=== PATIENT | female | born 1975 | race American Indian/Alaskan Native ===

== ENCOUNTER 2017-11-01 11:37 | Emergency (ER) | payer MEDICAID, OTHER ==
[2017-11-01 11:50] VITALS: BP 120/90
--- NOTE | 2017-11-01 12:11 | EDM.PDOC ---
ED HPI GENERAL MEDICAL PROBLEM - General Chief Complaint: Back Pain or Injury Stated Complaint: [id number] BACK PAIN Time Seen by Provider: 11/01/17 11:50 Source of Information: Reports: Patient, Old Records, RN, RN Notes Reviewed History Limitations: Reports: No Limitations - History of Present Illness INITIAL COMMENTS - FREE TEXT/NARRATIVE: Adela is a 42 yo F that presents to the ED today due to complaints of back pain. She relates that she does suffer from chronic back pain and was seeing a pain management in [place] but was unable to keep her appointments there due to the distance. She was previously taking gabapentin and tramadol for her pain, but has since ran out. Reports that her back pain seemed to get worse over the last couple days making it uncomfortable for her to lie down in bed at night so she has needed to sleep up right in a chair to be able to sleep. She denies any bowel or bladder retention or incontinence. Denies any new injuries to the area. Reports that the pain starts in her mid back and shoots down into her right leg. She does report numbness into her right leg but says that that is nothing new for her. She has been taking tylenol and ibuprofen over the counter with minimal relief. Denies hematuria or urinary frequency. Onset: Gradual Duration: Chronic Location: Reports: Back Quality: Reports: Stabbing, Other ("muscle spasm like pain" ) Improves with: Reports: Rest Worsens with: Reports: Movement Associated Symptoms: Reports: No Other Symptoms Lower Back Pain Score (Numeric/FACES): 5 - Related Data Allergies Allergy/AdvReac Type Severity Reaction Status Date / Time Penicillins Allergy Rash Verified 11/01/17 11:41 Home Meds: Home Meds Cetirizine HCl [All Day Allergy] 10 mg PO DAILY 11/01/17 [History] Past Medical History HEENT History: Reports: Impaired Vision Cardiovascular History: Reports: Hypertension Musculoskeletal History: Reports: Back Pain, Chronic Endocrine/Metabolic History: Reports: Diabetes, Gestational, Obesity/BMI 30+ - Past Surgical History Cardiovascular Surgical History: Reports: None Musculoskeletal Surgical History: Reports: Other (See Below) Other Musculoskeletal Surgeries/Procedures:: left ankle broken Social & Family History - Family History Family Medical History: Noncontributory - Tobacco Use Smoking Status *Q: Current Every Day Smoker Years of Tobacco use: 20 Packs/Tins Daily: 1 - Caffeine Use Caffeine Use: Reports: Coffee - Recreational Drug Use Recreational Drug Use: No ED ROS GENERAL - Review of Systems Review Of Systems: ROS reveals no pertinent complaints other than HPI. ED EXAM,LOWER BACK PAIN/INJURY - Physical Exam Exam: See Below Exam Limited By: No Limitations General Appearance: Alert, WD/WN, No Apparent Distress Eye Exam: Bilateral Eye: EOMI, Vision Changes Ears: Normal External Exam, Normal Canal, Hearing Grossly Normal, Normal TMs Nose: Normal Inspection, Normal Mucosa, No Blood Throat/Mouth: Normal Inspection, Normal Lips, Normal Teeth, Normal Gums, Normal Oropharynx, Normal Voice, No Airway Compromise Head: Atraumatic, Normocephalic Neck: Normal Inspection, Supple, Non-Tender, Full Range of Motion Respiratory/Chest: No Respiratory Distress, Lungs Clear, Normal Breath Sounds, No Accessory Muscle Use, Chest Non-Tender Cardiovascular: Normal Peripheral Pulses, Regular Rate, Rhythm, No Edema, No Gallop, No JVD, No Murmur, No Rub GI/Abdominal: Normal Bowel Sounds, Soft, Non-Tender, No Organomegaly, No Distention, No Abnormal Bruit, No Mass (Female) Exam: Deferred Rectal (Female) Exam: Deferred Back Exam: Paraspinal Tenderness (Patient reports pain to paraspinal muscles starting at L5 down. No wounds/open sores noted. ) Extremities: Normal Inspection, Normal Range of Motion, Non-Tender, No Pedal Edema, Normal Capillary Refill Neurological: Alert, Normal Mood/Affect, Normal Dorsiflexion, CN II-XII Intact, Normal Plantar Flexion, Normal Gait, Normal Reflexes, No Motor/Sensory Deficits , Oriented x 3 Psychiatric: Normal Affect, Normal Mood Skin Exam: Warm, Dry, Intact, Normal Color, No Rash Lymphatic: No Adenopathy Course - Vital Signs Last Recorded V/S: Last Vital Signs Temp 36.4 C 11/01/17 11:44 Pulse 87 11/01/17 11:44 Resp 16 11/01/17 11:44 BP 120/90 11/01/17 11:44 Pulse Ox 100 11/01/17 11:44 - Orders/Labs/Meds Meds: Medications Discontinued Medications Generic Name Dose Route Start Last Admin Trade Name Freq PRN Reason Stop Dose Admin Cyclobenzaprine HCl 10 mg 11/01/17 12:13 03/21/18 12:21 Flexeril PO 11/01/17 12:14 Not Given ONETIME ONE Ketorolac Tromethamine 60 mg 11/01/17 12:13 11/01/17 12:19 Toradol IM 11/01/17 12:14 60 mg ONETIME ONE Administration - Re-Assessments/Exams Free Text/Narrative Re-Assessment/Exam: 11/01/17 12:44 Patient was given injection of toradol while in the ER. She was offered PO flexeril but declined as she didn't want anything that would make her feel sleepy. Departure - Departure Time of Disposition: 12:46 Disposition: Home, Self-Care 01 Condition: Good Clinical Impression: Back pain Qualifiers: Back pain location: low back pain Chronicity: chronic Back pain laterality: bilateral Sciatica presence: with sciatica Sciatica laterality: sciatica of right side Qualified Code(s): M54.41 - Lumbago with sciatica, right side - Discharge Information Instructions: Back Pain, Adult, [id number], Chronic Back Pain Forms: ED Department Discharge Care Plan Goals: Adela was given a prescription for toradol with instructions not to take ibuprofen along with the toradol. Encouraged her to keep her appointment with her primary care provider regarding her back pain as scheduled. Red flag symptoms discussed including bowel or bladder issues, numbness or weakness. Patient verbalizes understanding. Denies any further questions or concerns at this time.
[2017-11-01] MEDS: Ketorolac 30 MG/ML SDV IM ONE (12:19)
[2017-11-01] MEDS: Cyclobenzaprine 10 MG Tab PO ONE (12:21)
== END 2017-11-01 12:51 | disposition home or self-care (01) ==
LOC: DL.ED 11:37
DX: M54.41 Lumbago with sciatica, right side (principal); I10 Essential (primary) hypertension; F17.210 Nicotine dependence, cigarettes, uncomplicated; Z88.0 Allergy status to penicillin
CPT/HCPCS: 96372; 99283; J1885

== ENCOUNTER 2018-12-03 19:21 | Emergency (ER) | payer MEDICAID ==
[2018-12-03] MEDS ORDERED: Potassium Chloride 10 MEQ Tab.ER PO ONE (19:22)
[2018-12-03] MEDS ORDERED: Furosemide 40 MG Tab PO ONE (19:22)
--- NOTE | 2018-12-03 19:47 | EDM.PDOC ---
ED HPI GENERAL MEDICAL PROBLEM - General Chief Complaint: Lower Extremity Injury/Pain Stated Complaint: LEGS, SWOLLEN Time Seen by Provider: 12/03/18 19:30 Source of Information: Reports: Patient, RN Notes Reviewed History Limitations: Reports: No Limitations - History of Present Illness INITIAL COMMENTS - FREE TEXT/NARRATIVE: ED with c/o lower leg swelling. Present x one month, worse 3 weeks ago. Increased over past 2 days. No calf pain, no SOB, No hx of blood clots. no injury, no recent travel. Admits at least 3-4 energy drinks per day. Complete physical 3 weeks ago, Started on Vitamin d, some improvemnt after and also given 5 day Rx for Lasix. Usual weight 289, weighs at least weekly and no change. Bilateral Lower Leg Pain Score (Numeric/FACES): 4 - Related Data Allergies Allergy/AdvReac Type Severity Reaction Status Date / Time Penicillins Allergy Rash Verified 12/03/18 19:30 Home Meds: Home Meds Cetirizine HCl [All Day Allergy] 10 mg PO DAILY 11/01/17 [History] Buprenorphine HCl/Naloxone HCl [Suboxone 12 mg-3 mg Sl Film] 8.6 mg PO DAILY [History] Past Medical History HEENT History: Reports: Impaired Vision Cardiovascular History: Reports: Hypertension Musculoskeletal History: Reports: Back Pain, Chronic, Fracture Psychiatric History: Reports: Addiction Endocrine/Metabolic History: Reports: Diabetes, Gestational, Obesity/BMI 30+ - Past Surgical History Cardiovascular Surgical History: Reports: None Musculoskeletal Surgical History: Reports: Other (See Below) Other Musculoskeletal Surgeries/Procedures:: left ankle broken Social & Family History - Family History Family Medical History: Noncontributory - Tobacco Use Smoking Status *Q: Current Every Day Smoker Years of Tobacco use: 25 Packs/Tins Daily: 0.3 - Caffeine Use Caffeine Use: Reports: Coffee, Soda - Recreational Drug Use Recreational Drug Use: No Review of Systems - Review of Systems Review Of Systems: ROS reveals no pertinent complaints other than HPI. ED EXAM, GENERAL - Physical Exam Exam: See Below Exam Limited By: No Limitations General Appearance: Alert, Mild Distress, Obese Eye Exam: Bilateral Eye: EOMI Ears: Normal External Exam, Hearing Grossly Normal Nose: Normal Inspection Throat/Mouth: Normal Inspection, Normal Lips Head: Atraumatic, Normocephalic Neck: Normal Inspection Respiratory/Chest: No Respiratory Distress, Lungs Clear, Normal Breath Sounds Cardiovascular: Normal Peripheral Pulses, Regular Rate, Rhythm GI/Abdominal: Normal Bowel Sounds, Soft Extremities: Pedal Edema (3+ pedal edema, 2 + below knee. greater anterior). No : Morgan's Sign Neurological: Alert, Oriented, Normal Cognition Psychiatric: Normal Affect, Normal Mood Skin Exam: Warm, Dry, Intact, Normal Color Course - Vital Signs Last Recorded V/S: Last Vital Signs Temp 98.6 F 12/03/18 21:13 Pulse 71 12/03/18 21:13 Resp 16 12/03/18 21:13 BP 117/77 12/03/18 21:13 Pulse Ox 98 12/03/18 21:13 - Orders/Labs/Meds Labs: Laboratory Tests 12/03/18 12/03/18 12/03/18 Range/Units 19:55 19:55 19:55 WBC 12.5 H (5.0-10.0) 10^3/uL RBC 4.64 (4.2-5.4) 10^6/uL Hgb 13.2 (12.0-16.0) g/dL Hct 40.7 (37.0-47.0) % MCV 87.7 (80-100) fL MCH 28.4 (27.0-34.0) pg MCHC 32.4 L (33.0-35.0) g/dL Plt Count 314 (150-450) 10^3/uL Neut % (Auto) 62.2 (42.2-75.2) % Lymph % (Auto) 24.5 (20.5-50.1) % Sac % (Auto) 9.2 H (2-8) % Eos % (Auto) 3.7 H (1.0-3.0) % Baso % (Auto) 0.4 (0.0-1.0) % D-Dimer, Quantitative 316 (0-400) ng/mL Sodium 138 (135-145) mmol/L Potassium 3.9 (3.6-5.0) mmol/L Chloride 107 (101-111) mmol/L Carbon Dioxide 24.0 (21.0-31.0) mmol/L Anion Gap 10.9 BUN 17 (7-18) mg/dL Creatinine 0.8 (0.6-1.3) mg/dL Est Cr Clr Drug Dosing 78.30 mL/min Estimated GFR (MDRD) > 60 BUN/Creatinine Ratio 21.25 Glucose 91 (74-105) mg/dL Calcium 8.4 (8.4-10.2) mg/dl Magnesium 1.9 (1.8-2.5) mg/dL Total Bilirubin 0.7 (0.2-1.0) mg/dL AST 22 (10-42) IU/L ALT 17 (10-60) IU/L Alkaline Phosphatase 100 (42-121) IU/L B-Natriuretic Peptide 23 (0-100) pg/ml Total Protein 7.4 (6.7-8.2) g/dl Albumin 3.5 (3.2-5.5) g/dl Globulin 3.9 Albumin/Globulin Ratio 0.90 TSH, Ultra Sensitive (0.45-5.33) uIu/mL Urine Color (YELLOW) Urine Appearance (CLEAR) Urine pH (5.0-9.0) Ur Specific [place] (1.005-1.030) Urine Protein (NEGATIVE) Urine Glucose (UA) (NEGATIVE) Urine Ketones (NEGATIVE) Urine Occult Blood (NEGATIVE) Urine Nitrite (NEGATIVE) Urine Bilirubin (NEGATIVE) Urine Urobilinogen (0.2-1.0) mg/dL Ur Leukocyte Esterase (NEGATIVE) Urine RBC /HPF Urine WBC (0-5/HPF) /HPF Ur Epithelial Cells /HPF Amorphous Sediment (0/HPF) /HPF Urine Bacteria (0-FEW/HPF) /HPF Urine Opiates Screen (NEGATIVE) Ur Oxycodone Screen (NEGATIVE) Urine Methadone Screen (NEGATIVE) Ur Barbiturates Screen (NEGATIVE) U Tricyclic Antidepress (NEGATIVE) Ur Phencyclidine Scrn (NEGATIVE) Ur Amphetamine Screen (NEGATIVE) U Methamphetamines Scrn (NEGATIVE) Urine MDMA Screen (NEGATIVE) U Benzodiazepines Scrn (NEGATIVE) Urine Cocaine Screen (NEGATIVE) U Marijuana (THC) Screen (NEGATIVE) 12/03/18 12/03/18 12/03/18 Range/Units 19:55 20:14 20:14 WBC (5.0-10.0) 10^3/uL RBC (4.2-5.4) 10^6/uL Hgb (12.0-16.0) g/dL Hct (37.0-47.0) % MCV (80-100) fL MCH (27.0-34.0) pg MCHC (33.0-35.0) g/dL Plt Count (150-450) 10^3/uL Neut % (Auto) (42.2-75.2) % Lymph % (Auto) (20.5-50.1) % Sac % (Auto) (2-8) % Eos % (Auto) (1.0-3.0) % Baso % (Auto) (0.0-1.0) % D-Dimer, Quantitative (0-400) ng/mL Sodium (135-145) mmol/L Potassium (3.6-5.0) mmol/L Chloride (101-111) mmol/L Carbon Dioxide (21.0-31.0) mmol/L Anion Gap BUN (7-18) mg/dL Creatinine (0.6-1.3) mg/dL Est Cr Clr Drug Dosing mL/min Estimated GFR (MDRD) BUN/Creatinine Ratio Glucose (74-105) mg/dL Calcium (8.4-10.2) mg/dl Magnesium (1.8-2.5) mg/dL Total Bilirubin (0.2-1.0) mg/dL AST (10-42) IU/L ALT (10-60) IU/L Alkaline Phosphatase (42-121) IU/L B-Natriuretic Peptide (0-100) pg/ml Total Protein (6.7-8.2) g/dl Albumin (3.2-5.5) g/dl Globulin Albumin/Globulin Ratio TSH, Ultra Sensitive 1.73 (0.45-5.33) uIu/mL Urine Color Yellow (YELLOW) Urine Appearance Cloudy (CLEAR) Urine pH 8.5 (5.0-9.0) Ur Specific [place] 1.015 (1.005-1.030) Urine Protein Trace H (NEGATIVE) Urine Glucose (UA) Negative (NEGATIVE) Urine Ketones Negative (NEGATIVE) Urine Occult Blood Negative (NEGATIVE) Urine Nitrite Negative (NEGATIVE) Urine Bilirubin Negative (NEGATIVE) Urine Urobilinogen 4.0 H (0.2-1.0) mg/dL Ur Leukocyte Esterase Negative (NEGATIVE) Urine RBC 0-5 /HPF Urine WBC 0-5 (0-5/HPF) /HPF Ur Epithelial Cells Rare /HPF Amorphous Sediment Moderate H (0/HPF) /HPF Urine Bacteria Rare (0-FEW/HPF) /HPF Urine Opiates Screen Negative (NEGATIVE) Ur Oxycodone Screen Positive H (NEGATIVE) Urine Methadone Screen Negative (NEGATIVE) Ur Barbiturates Screen Negative (NEGATIVE) U Tricyclic Antidepress Negative (NEGATIVE) Ur Phencyclidine Scrn Negative (NEGATIVE) Ur Amphetamine Screen Negative (NEGATIVE) U Methamphetamines Scrn Negative (NEGATIVE) Urine MDMA Screen Negative (NEGATIVE) U Benzodiazepines Scrn Negative (NEGATIVE) Urine Cocaine Screen Negative (NEGATIVE) U Marijuana (THC) Screen Negative (NEGATIVE) Meds: Medications Discontinued Medications Generic Name Dose Route Start Last Admin Trade Name Freq PRN Reason Stop Dose Admin Furosemide Confirm 12/03/18 21:06 12/03/18 21:15 Lasix Administered 12/03/18 21:07 Not Given Dose 40 mg .ROUTE .STK-MED ONE Potassium Chloride Confirm 12/03/18 21:04 12/03/18 21:15 Klor-Con 10 Administered 12/03/18 21:05 Not Given Dose 10 meq .ROUTE .STK-MED ONE Departure - Departure Time of Disposition: 21:03 Disposition: Home, Self-Care 01 Condition: Good Clinical Impression: Edema, peripheral - Discharge Information *PRESCRIPTION DRUG MONITORING PROGRAM REVIEWED*: No *COPY OF PRESCRIPTION DRUG MONITORING REPORT IN PATIENT NORA: No Instructions: Edema, [id number] Forms: ED Department Discharge Additional Instructions: stop overuse of energy drinks decrease sodium intake clinic follow up later this week lasix 20mg daily for 5 days potassium 10meq daily x 5 days
[2018-12-03 20:25] LABS: ANION GAP 10.9; CHLORIDE,CL 107 mmol/L (101-111); SODIUM,NA 138 mmol/L (135-145)
[2018-12-03] MEDS ORDERED: Potassium Chloride 10 MEQ Tab.ER ONE (21:04)
[2018-12-03] MEDS ORDERED: Furosemide 40 MG Tab ONE (21:06)
[2018-12-03 21:13] VITALS: BP 117/77; PULSE 71
== END 2018-12-03 21:15 | disposition home or self-care (01) ==
LOC: DL.ED 19:21
DX: R60.0 Localized edema (principal); I10 Essential (primary) hypertension; E11.9 Type 2 diabetes mellitus without complications; F17.210 Nicotine dependence, cigarettes, uncomplicated; Z88.0 Allergy status to penicillin; Z79.899 Other long term (current) drug therapy
CPT/HCPCS: 36415; 80053; 80305; 81001; 83735; 83880; 84443; 85025; 85379; 99284; A9270

== ENCOUNTER 2021-01-19 00:42 | Emergency (ER) | payer MEDICAID ==
--- NOTE | 2021-01-19 01:41 | EDM.PDOC ---
ED HPI GENERAL MEDICAL PROBLEM - General Stated Complaint: SEVERE BACK PAIN Time Seen by Provider: 01/19/21 01:30 Source of Information: Reports: Patient, RN, RN Notes Reviewed History Limitations: Reports: No Limitations - History of Present Illness INITIAL COMMENTS - FREE TEXT/NARRATIVE: Adela is a 45 y/o female who presents to the ED via personal vehicle with complaints of back pain. The patient reports her pain began two days ago on her right midback after sleeping in an inappropriate chair. She notes the pain occasionally radiates into her right lower back and into her posterior right leg. She notes the pain is exacerbated by sitting, walking, and flexion of the hip. She denies dysuria, frequency, hematuria, saddle paraesthesia, urinary/bowel incontinence, or loss of sensory function to the lower extremities. The patient has taken multiple doses of ibuprofen and acetaminophen, with little to no improvement in symptoms. - Related Data Allergies Allergy/AdvReac Type Severity Reaction Status Date / Time Penicillins Allergy Rash Verified 01/19/21 01:40 Home Meds: Home Meds Cetirizine HCl [All Day Allergy] 10 mg PO DAILY 11/01/17 [History] Buprenorphine HCl/Naloxone HCl [Suboxone 12 mg-3 mg Sl Film] 8.6 mg PO DAILY 12/03/18 [History] Past Medical History HEENT History: Reports: Impaired Vision Cardiovascular History: Reports: Hypertension Musculoskeletal History: Reports: Back Pain, Chronic, Fracture Psychiatric History: Reports: Addiction Endocrine/Metabolic History: Reports: Diabetes, Gestational, Obesity/BMI 30+ - Past Surgical History Cardiovascular Surgical History: Reports: None Musculoskeletal Surgical History: Reports: Other (See Below) Other Musculoskeletal Surgeries/Procedures:: left ankle broken Social & Family History - Family History Family Medical History: No Pertinent Family History - Caffeine Use Caffeine Use: Reports: Coffee, Soda ED ROS GENERAL - Review of Systems Review Of Systems: Comprehensive ROS is negative, except as noted in HPI. ED EXAM,LOWER BACK PAIN/INJURY - Physical Exam Exam: See Below Exam Limited By: No Limitations General Appearance: Alert, No Apparent Distress, Obese Throat/Mouth: Normal Inspection, Normal Oropharynx, Normal Voice, No Airway Compromise Respiratory/Chest: No Respiratory Distress, Lungs Clear, Normal Breath Sounds, No Accessory Muscle Use, Chest Non-Tender Cardiovascular: Normal Peripheral Pulses, Regular Rate, Rhythm, No Gallop, No JVD, No Murmur, No Rub. No: No Edema GI/Abdominal: Soft, Non-Tender, No Distention, No Abnormal Bruit, No Mass, Pelvis Stable, Abnormal Bowel Sounds (Hypoactive bowel sounds). No: Guarding, Rigid, Rebound (Female) Exam: Deferred Rectal (Female) Exam: Deferred Back Exam: CVA Tenderness (R), Decreased Range of Motion (Due to back pain), Muscle Spasm (To right back), Paraspinal Tenderness (To right, mid-back). No: CVA Tenderness (L), Vertebral Tenderness Extremities: Pedal Edema (+1 pitting, bilaterally), Limited Range of Motion (To right lower extremity with flexion of hip d/t back pain) Neurological: Alert, Normal Mood/Affect, Normal Dorsiflexion, CN II-XII Intact, Normal Plantar Flexion, Normal Reflexes, No Motor/Sensory Deficits, Oriented x 3, Straight Leg Raise (L), Straight Leg Raise (R). No: Normal Gait (Stiff, hunched gait d/t mid back pain), Saddle Anesthesia Psychiatric: Normal Affect, Normal Mood Skin Exam: Warm, Dry, Intact, Normal Color, No Rash. No: Ecchymosis, Erythema, Increased Warmth, Jaundice, Mottled, Pallor, Petechiae Course - Vital Signs Last Recorded V/S: Last Vital Signs Temp 97.6 F 01/19/21 01:40 Pulse 76 01/19/21 01:40 Resp 18 01/19/21 01:40 BP 122/68 01/19/21 01:40 Pulse Ox 96 01/19/21 01:40 - Orders/Labs/Meds Labs: Laboratory Tests 01/19/21 Range/Units 01:47 Urine Color Yellow (YELLOW) Urine Appearance Cloudy (CLEAR) Urine pH 8.5 (5.0-9.0) Ur Specific [place] 1.020 (1.005-1.030) Urine Protein Trace H (NEGATIVE) Urine Glucose (UA) Negative (NEGATIVE) Urine Ketones Negative (NEGATIVE) Urine Occult Blood Negative (NEGATIVE) Urine Nitrite Negative (NEGATIVE) Urine Bilirubin Negative (NEGATIVE) Urine Urobilinogen 4.0 H (0.2-1.0) mg/dL Ur Leukocyte Esterase Negative (NEGATIVE) Urine RBC 0-5 /HPF Urine WBC 0-5 (0-5/HPF) /HPF Ur Epithelial Cells Few (NOT SEEN) /HPF Amorphous Sediment Moderate H (NOT SEEN) /HPF Urine Bacteria Occasional (0-FEW/HPF) /HPF Urine Mucus Few H (NOT SEEN) /LPF Meds: Medications Discontinued Medications Generic Name Dose Route Start Last Admin Trade Name Jonathan PRN Reason Stop Dose Admin Ketorolac Tromethamine 60 mg 01/19/21 01:45 01/19/21 01:53 Ketorolac 30 Mg/Ml Sdv IM 01/19/21 01:46 60 mg ONETIME ONE Administration Orphenadrine Citrate 60 mg 01/19/21 01:46 01/19/21 01:53 Orphenadrine 60 Mg/2 Ml Inj IM 01/19/21 01:47 60 mg ONETIME ONE Administration - Re-Assessments/Exams Free Text/Narrative Re-Assessment/Exam: 01/19/21 Will treat muscle spasm with Norflex IM and ketorolac IM. Will assess urine given R CVA tenderness. Departure - Departure Time of Disposition: 02:24 Disposition: Home, Self-Care 01 Condition: Good Clinical Impression: Spasm of back muscles - Discharge Information *PRESCRIPTION DRUG MONITORING PROGRAM REVIEWED*: Not Applicable *COPY OF PRESCRIPTION DRUG MONITORING REPORT IN PATIENT NORA: Not Applicable Instructions: Muscle Cramps and Spasms, [id number] Forms: ED Department Discharge Additional Instructions: Rx: orphenadrine 1.) You may take acetaminophen (Tylenol) 1000mg every six hours, as pain persists. You may take ibuprofen (Advil/Motrin) 400mg every six hours, as pain and swelling persists. You may stagger these medications so you are receiving a dose every three hours. 2.) You may alternate ice and heat to the affected area. 3.) You may apply BioFreeze, Bengay, or a similar ointment/cream to affected area. Sepsis Event Note (ED) - Focused Exam Vital Signs: Vital Signs Temp Pulse Resp BP Pulse Ox 01/19/21 01:40 97.6 F 76 18 122/68 96
[2021-01-19 01:42] VITALS: BP 122/68; PULSE 76
[2021-01-19] MEDS ORDERED: Ketorolac 30 MG/ML SDV IM ONE (01:45)
[2021-01-19] MEDS ORDERED: Orphenadrine 60 MG/2 ML Inj IM ONE (01:46)
== END 2021-01-19 02:25 | disposition home or self-care (01) ==
LOC: DL.ED 00:42
DX: M62.830 Muscle spasm of back (principal); I10 Essential (primary) hypertension; E66.9 Obesity, unspecified; Z88.0 Allergy status to penicillin; Z68.30 Body mass index [BMI] 30.0-30.9, adult
CPT/HCPCS: 81001; 96372; 99283; J1885; J2360

== ENCOUNTER 2021-04-25 19:53 | Emergency (ER) | payer SELFPAY ==
[2021-04-25] MEDS ORDERED: Cyclobenzaprine 10 MG Tab PO ONE (19:54)
[2021-04-25 20:13] VITALS: BP 158/79; PULSE 74
[2021-04-25] MEDS ORDERED: Orphenadrine 60 MG/2 ML Inj IM ONE (21:23)
--- NOTE | 2021-04-25 21:30 | EDM.PDOC ---
ED HPI GENERAL MEDICAL PROBLEM - General Chief Complaint: Back Pain or Injury Stated Complaint: PAIN IN BACK Time Seen by Provider: 04/25/21 20:20 Source of Information: Reports: Patient History Limitations: Reports: No Limitations - History of Present Illness INITIAL COMMENTS - FREE TEXT/NARRATIVE: ED with c/o low back pain worse on right. Denied injury noted yesterday mornig when sat up in bed. Hx of same in past bur more on other side. no difficulty or pain with urination denies radiation of pin down leg. Pain worse with movement. Back Pain Score (Numeric/FACES): 7 - Related Data Allergies Allergy/AdvReac Type Severity Reaction Status Date / Time Penicillins Allergy Rash Verified 01/19/21 01:40 Home Meds: Home Meds Cetirizine HCl [All Day Allergy] 10 mg PO DAILY 11/01/17 [History] Buprenorphine HCl/Naloxone HCl [Suboxone 12 mg-3 mg Sl Film] 8.6 mg PO DAILY 12/03/18 [History] Ibuprofen/Acetaminophen [Advil Dual Action 250Mg-125Mg] 04/25/21 [History] Past Medical History HEENT History: Reports: Impaired Vision Cardiovascular History: Reports: Hypertension Respiratory History: Reports: None Gastrointestinal History: Reports: None Genitourinary History: Reports: None [employer]OR TRANSPORTATION History: Reports: None Musculoskeletal History: Reports: Back Pain, Chronic, Fracture Psychiatric History: Reports: Addiction Endocrine/Metabolic History: Reports: Diabetes, Gestational, Obesity/BMI 30+ Hematologic History: Reports: None - Infectious Disease History Infectious Disease History: Reports: None - Past Surgical History Cardiovascular Surgical History: Reports: None Musculoskeletal Surgical History: Reports: Other (See Below) Other Musculoskeletal Surgeries/Procedures:: left ankle broken Social & Family History - Family History Family Medical History: No Pertinent Family History - Tobacco Use Tobacco Use Status *Q: Current Every Day Tobacco User Years of Tobacco use: 20 Packs/Tins Daily: 0.2 - Caffeine Use Caffeine Use: Reports: Coffee - Recreational Drug Use Recreational Drug Use: No ED ROS GENERAL - Review of Systems Review Of Systems: Comprehensive ROS is negative, except as noted in HPI. ED EXAM,LOWER BACK PAIN/INJURY - Physical Exam Exam: See Below Exam Limited By: No Limitations General Appearance: Alert, Moderate Distress (with movement), Obese Eye Exam: Bilateral Eye: EOMI Ears: Normal External Exam Nose: Normal Inspection Throat/Mouth: Normal Inspection Head: Atraumatic, Normocephalic Neck: Normal Inspection Respiratory/Chest: No Respiratory Distress, Lungs Clear, Normal Breath Sounds Cardiovascular: Normal Peripheral Pulses, Regular Rate, Rhythm Back Exam: Muscle Spasm (general lower greater irght lower ) Extremities: Pedal Edema (3+ bilateral mid calf) Neurological: Alert, Normal Plantar Flexion, Oriented x 3 Psychiatric: Normal Affect Skin Exam: Warm, Dry, Intact Course - Vital Signs Last Recorded V/S: Last Vital Signs Temp 96.9 F 04/25/21 20:09 Pulse 74 04/25/21 20:09 Resp 20 04/25/21 20:09 BP 158/79 H 04/25/21 20:09 Pulse Ox 96 04/25/21 20:09 - Orders/Labs/Meds Meds: Medications Discontinued Medications Generic Name Dose Route Start Last Admin Trade Name Osielq PRN Reason Stop Dose Admin Cyclobenzaprine HCl Confirm 04/25/21 21:37 Cyclobenzaprine 10 Mg Tab Administered 04/25/21 21:38 Dose 10 mg .ROUTE .STK-MED ONE Orphenadrine Citrate 60 mg 04/25/21 21:23 04/25/21 21:40 Orphenadrine 60 Mg/2 Ml Inj IM 04/25/21 21:24 60 mg ONETIME ONE Administration Departure - Departure Time of Disposition: 21:30 Disposition: Home, Self-Care 01 Condition: Good Clinical Impression: Back muscle spasm, Edema, peripheral - Discharge Information *PRESCRIPTION DRUG MONITORING PROGRAM REVIEWED*: No *COPY OF PRESCRIPTION DRUG MONITORING REPORT IN PATIENT NORA: No Instructions: Muscle Cramps and Spasms, [id number], Peripheral Edema Forms: ED Department Discharge Additional Instructions: clinic follow up tomorrow limit salt sodium energy drinks elevate extremities short walking at least every hour flexeril every 8 hours as needed for back spasm limit use of ibuprofen tylenol 500mg every 4 hours as needed for doscomfort alternate heat and ice to low back icy hot or nia jones type product Sepsis Event Note (ED) - Evaluation Sepsis Screening Result: No Definite Risk - Focused Exam Vital Signs: Vital Signs Temp Pulse Resp BP Pulse Ox 04/25/21 20:09 96.9 F 74 20 158/79 H 96
[2021-04-25] MEDS ORDERED: Cyclobenzaprine 10 MG Tab ONE (21:37)
== END 2021-04-25 21:59 | disposition home or self-care (01) ==
LOC: DL.ED 19:53
DX: M62.830 Muscle spasm of back (principal); R60.0 Localized edema; E66.9 Obesity, unspecified; Z68.43 Body mass index [BMI] 50.0-59.9, adult; Z88.0 Allergy status to penicillin; Z72.0 Tobacco use
CPT/HCPCS: 96372; 99283; A9270; J2360

== ENCOUNTER 2021-10-16 17:05 | Emergency (ER) | payer SELFPAY ==
[2021-10-16] MEDS ORDERED: Cyclobenzaprine 10 MG Tab PO ONE ×2 (17:06→17:34)
[2021-10-16 17:24] VITALS: BP 128/78; PULSE 77
[2021-10-16] MEDS ORDERED: Cyclobenzaprine 10 MG Tab ONE (17:51)
== END 2021-10-16 18:00 | disposition home or self-care (01) ==
LOC: DL.ED 17:05
DX: M62.830 Muscle spasm of back (principal); I10 Essential (primary) hypertension; F17.210 Nicotine dependence, cigarettes, uncomplicated; E66.01 Morbid (severe) obesity due to excess calories; Z68.43 Body mass index [BMI] 50.0-59.9, adult; Z88.0 Allergy status to penicillin
CPT/HCPCS: 99283; A9270-GY

== ENCOUNTER 2024-06-16 01:30 | Emergency (ER) | payer MEDICAID ==
[2024-06-16] MEDS: Acetaminophen 325 MG Tab PO ONE (01:28)
[2024-06-16] MEDS: Ketorolac 30 MG/ML SDV IM ONE (01:29)
[2024-06-16] MEDS: oxyCODONE 5 MG Tab PO ONE (01:38)
[2024-06-16 02:55] VITALS: BP 125/81; PULSE 70
== END 2024-06-16 02:19 | disposition home or self-care (01) ==
LOC: DL.ED 01:30
DX: M17.11 Unilateral primary osteoarthritis, right knee (principal); I10 Essential (primary) hypertension; E66.9 Obesity, unspecified; F17.210 Nicotine dependence, cigarettes, uncomplicated; Z88.0 Allergy status to penicillin; Z79.51 Long term (current) use of inhaled steroids; Z79.891 Long term (current) use of opiate analgesic; Z79.899 Other long term (current) drug therapy; Z68.43 Body mass index [BMI] 50.0-59.9, adult
CPT/HCPCS: 96372; 99283; A9270; J1885

== ENCOUNTER 2024-08-08 22:22 | Emergency (ER) | payer MEDICAID ==
[2024-08-08 23:13] VITALS: BP 116/86; PULSE 73
[2024-08-08] MEDS: Acetaminophen 325 MG Tab PO ONE (23:28)
== END 2024-08-08 23:50 | disposition home or self-care (01) ==
LOC: DL.ED 22:22
DX: K02.9 Dental caries, unspecified (principal); I10 Essential (primary) hypertension; E66.9 Obesity, unspecified; F17.210 Nicotine dependence, cigarettes, uncomplicated; Z88.0 Allergy status to penicillin; Z79.51 Long term (current) use of inhaled steroids; Z79.899 Other long term (current) drug therapy; Z68.42 Body mass index [BMI] 45.0-49.9, adult
CPT/HCPCS: 99282; A9270-GY

== ENCOUNTER 2025-02-06 21:06 | Emergency (ER) | payer MEDICAID ==
[2025-02-06 21:41] LABS: BASOPHILS PERCENT AUTO 0.5 % (0.0-1.0); EOSINOPHILS PERCENT AUTO 0.5 % (1.0-3.0); HEMATOCRIT 46.7 % (37.0-47.0); HEMOGLOBIN 15.4 g/dL (12.0-16.0); LYMPHOCYTES PERCENT AUTO 15.7 % (20.5-50.1); MEAN CORPUSCULAR HEMOGLOBIN 29.6 pg (27.0-34.0); MEAN CORPUSCULAR VOLUME 89.8 fL (80-100); MONOCYTES PERCENT AUTO 6.2 % (2-8); NEUTROPHILS PERCENT AUTO 77.1 % (42.2-75.2); PLATELET COUNT,PLT 275 10^3/uL (150-450); WHITE BLOOD CELL COUNT,WBC 10.6 10^3/uL (5.0-10.0)
[2025-02-06 22:11] LABS: ALBUMIN 3.3 g/dL (3.4-5.0); ANION GAP 11.6 mEq/L (7-13); BILIRUBIN TOTAL 0.5 mg/dL (0.2-1.0); BUN/CREATININE RATIO 16.7 (No establ ref range); C-REACTIVE PROTEIN 0.93 ng/dL (<=0.50); CREATININE 0.84 mg/dL (0.55-1.02); EST CRCL DRUG DOSING (CG) 69.19 mL/min; POTASSIUM,K 3.6 mmol/L (3.5-5.1); PROTEIN TOTAL,TP 7.9 g/dL (6.4-8.2)
[2025-02-06 22:12] LABS: A/G RATIO 0.72
[2025-02-06] MEDS: Potassium Chloride 10 MEQ Tab.ER PO ONE (22:25)
[2025-02-06] MEDS: predniSONE 20 MG Tab PO ONE (22:25)
[2025-02-06 22:50] VITALS: BP 133/94; PULSE 69
== END 2025-02-06 22:45 | disposition home or self-care (01) ==
LOC: DL.ED 21:06
DX: M25.562 Pain in left knee (principal); R25.2 Cramp and spasm; I10 Essential (primary) hypertension; E66.9 Obesity, unspecified; Z88.0 Allergy status to penicillin; Z79.899 Other long term (current) drug therapy; Z79.51 Long term (current) use of inhaled steroids; Z68.42 Body mass index [BMI] 45.0-49.9, adult
CPT/HCPCS: 36415; 80053; 85025; 86140; 99283; 99284; A9270; J7512

== ENCOUNTER 2025-02-07 18:22 | Emergency (ER) | payer MEDICAID ==
[2025-02-07 18:32] VITALS: BP 145/96; PULSE 75
== END 2025-02-07 18:58 | disposition home or self-care (01) ==
LOC: DL.ED 18:22
DX: R09.81 Nasal congestion (principal); I10 Essential (primary) hypertension; E66.9 Obesity, unspecified; Z79.899 Other long term (current) drug therapy; Z88.0 Allergy status to penicillin; Z68.42 Body mass index [BMI] 45.0-49.9, adult
CPT/HCPCS: 99282; 99283

== ENCOUNTER 2025-06-24 03:38 | Emergency (ER) | payer SELFPAY ==
[2025-06-24 03:49] VITALS: BP 172/97; PULSE 79
[2025-06-24 04:44] LABS: BASOPHILS PERCENT AUTO 0.5 % (0.0-1.0); EOSINOPHILS PERCENT AUTO 2.6 % (1.0-3.0); LYMPHOCYTES PERCENT AUTO 17.5 % (20.5-50.1); MONOCYTES PERCENT AUTO 5.8 % (2-8); NEUTROPHILS PERCENT AUTO 73.6 % (42.2-75.2); PLATELET COUNT,PLT 255 10^3/uL (150-450); RED BLOOD CELL COUNT 4.84 10^6/uL (4.2-5.4); WHITE BLOOD CELL COUNT,WBC 12.9 10^3/uL (5.0-10.0)
[2025-06-24 05:04] LABS: A/G RATIO 0.8; ALANINE AMINOTRANSFERASE,ALT 18.0 U/L (14-59); ASPARTATE AMNIOTRANSFERASE,AST 17.0 U/L (15-37); BILIRUBIN TOTAL 0.6 mg/dL (0.2-1.0); BLOOD UREA NITROGEN,BUN 18.0 mg/dL (7-18); CARBON DIOXIDE,CO2 28.0 mmol/L (21-32); CHLORIDE,CL 105.0 mmol/L (98-107); CREATININE 0.72 mg/dL (0.55-1.02); EST CRCL DRUG DOSING (CG) 80.72 mL/min; GLUCOSE RANDOM 111.0 mg/dL (70-99); POTASSIUM,K 3.7 mmol/L (3.5-5.1); PROTEIN TOTAL,TP 7.6 g/dL (6.4-8.2); SODIUM,NA 141.0 mmol/L (136-145)
[2025-06-24 05:06] LABS: ESTIMATED GFR 102.0 mL/min (>=60)
[2025-06-24 05:27] LABS: APPEARANCE,URINE SLIGHTLY CLOUDY (CLEAR); GLUCOSE,URINE NEGATIVE (NEGATIVE); OCCULT BLOOD,URINE NEGATIVE (NEGATIVE)
[2025-06-24 05:37] LABS: EPITHELIAL CELLS,URINE MANY /HPF (NOT SEEN)
[2025-06-24] MEDS: Iopamidol 612 MG/ML 100 ML Bottle IVPUSH ONE (05:50)
== END 2025-06-24 07:14 | disposition home or self-care (01) ==
LOC: DL.ED 03:38
DX: R10.12 Left upper quadrant pain (principal); I10 Essential (primary) hypertension; E66.01 Morbid (severe) obesity due to excess calories; F17.210 Nicotine dependence, cigarettes, uncomplicated; Z68.42 Body mass index [BMI] 45.0-49.9, adult; Z88.0 Allergy status to penicillin; Z79.899 Other long term (current) drug therapy
CPT/HCPCS: 36415; 74177; 80053; 81001; 83605; 83690; 83735; 84484; 84703; 85025; 86140; 87086; 93005; 99285; A9270; Q9967